=== PATIENT | male | born 1970 | race Two or more races ===

== ENCOUNTER 2022-01-30 18:09 | Emergency (ER) | payer SELFPAY ==
[~2022-01-30] VITALS: Ht 167.6 cm; Wt 83.6 kg
[2022-01-30 20:27] VITALS: BP 181/151
[2022-01-30] MEDS ORDERED: IBUP800T26 PO (20:43)
[2022-01-30] MEDS ORDERED: AMOX500T86 PO (20:43)
[2022-01-30] MEDS ORDERED: IBUPROFEN 800 MG TAB PO ONE ×2 (20:45→21:15)
[2022-01-30] MEDS ORDERED: AZITTAB PO (21:10)
[2022-01-30] MEDS ORDERED: AZIT250T8 PO (21:10)
[2022-01-30] MEDS ORDERED: AZITHROMYCIN 250 MG TAB PO ONE (21:15)
== END 2022-01-30 21:19 | disposition home or self-care (01) ==
LOC: ER 18:09
DX: H66.92 Otitis media, unspecified, left ear (principal); Z79.1 Long term (current) use of non-steroidal anti-inflammatories (NSAID); Z79.2 Long term (current) use of antibiotics; Z88.0 Allergy status to penicillin; Z20.822 Contact with and (suspected) exposure to COVID-19
CPT/HCPCS: 36415; 87426; 87804